=== PATIENT | male | born 1945 | race Caucasian/White ===

== ENCOUNTER 2016-09-30 00:21 | Day surgery (SDC) | payer MEDICARE ==
[~2016-09-30] VITALS: Ht 165.1 cm; Wt 78.2 kg
[2016-09-30] VITALS (15 sets, daily range): BP systolic 143–172; BP diastolic 68–97; PULSE 50–68; RESP 12–20; O2SAT 94–99
[~2016-09-30 00:21] MED LIST: ASPI-973 PO; HYDR-4003 PO; LOSA100T29 PO; MULT-1018 PO; NAPR220C11 PO; NITR0.4T6 SL
[2016-09-30 07:51] LABS: BASOPHILS % (AUTO) 0.8 % (0-3); EOSINOPHILS % (AUTO) 3.1 % (0-5); MONOCYTES % (AUTO) 11.8 % (4-12); Mean Corpuscular Hemoglobin 29.7 pg (27.0-35.0); Mean Corpuscular Volume 87.2 fL (81-100); NEUTROPHILS % (AUTO) 54.6 % (40-74); Platelet Count 176 bil/L (150-400)
[2016-09-30] MEDS ORDERED: Heparin 10,000 Unit/1,000 mL NS Premix IV ONE (07:58)
[2016-09-30] MEDS ORDERED: Heparin 1,000 Unit/mL 10 mL Inj ONE (07:58)
[2016-09-30] MEDS ORDERED: Heparin 1,000 Units/500 mL NS Premix IV ONE (07:58)
[2016-09-30] MEDS ORDERED: Nitroglycerin 50,000 mcg/250 mL D5W Premix IV ONE (07:58)
[2016-09-30] MEDS ORDERED: fentaNYL-PF 50 mCg/mL 2 mL Inj ONE (08:57)
[2016-09-30] MEDS ORDERED: 0.9% Sodium Chloride 50 ML ONE (09:32)
[2016-09-30] MEDS ORDERED: Adenosine Inj 20 ML IV ONE (09:32)
--- NOTE | 2016-09-30 10:58 | DI95 ---
[place] [id number] INTERVENTIONAL CARDIAC CATHETERIZATION PATIENT: REVA LINDSEY : 1945 MR#: [id number] ADMIT: 09/30/2016 JOB ID: [id number] DATE OF PROCEDURE: 09/30/2016 PATIENT PROFILE: The patient is a 71-year-old male with history of hypertension, obstructive sleep apnea, and history of tobacco abuse. The patient presented with palpitation and abnormal stress test. PROCEDURE: 1. Retrograde left heart catheterization. 2. Selective coronary angiography. 3. Fractional flow reserve of the proximal left anterior descending. 4. Balloon angioplasty and stenting to the left anterior descending. VASCULAR CLOSURE DEVICE: Perclose. COMPLICATIONS: None. METHOD: Retrograde left heart catheterization was performed from the right groin under 1% lidocaine local anesthesia using a 6-Pakistani sheath. Selective coronary angiogram was performed in multiple projections, including cranial and caudal angulations with hand injected contrast via JL5 and 3DRC catheters. Heparin 4,000 units were given. A flow wire was directed into the left anterior descending artery. Adenosine was given infusion IV. FFR was measured at 0.67. Additional 6,000 units of heparin were given. The Runthrough wire was placed inside the left anterior descending artery. The proximal left anterior descending artery lesion was pre-dilated with a 2.5 x 15 mm balloon. An [place] 3.0 x 15 mm stent was placed inside the proximal left descending artery lesion and deployed at 12 atmospheres for 30 seconds. Final angiogram was obtained. Right femoral angiogram was performed. Following sheath removal, hemostasis was achieved by using a Perclose device. The patient tolerated procedure well. He was transferred to [facility] in good condition. TOTAL CONTRAST USED: 100 cc. FLUOROSCOPY TIME: 5.7 minutes. RESULTS: 1. Selective coronary angiogram: a. Left main coronary artery has 20% stenosis in the distal portion. b. The left anterior descending artery is transapical and has tandem 50 and 70% stenosis in the proximal portion. c. The circumflex artery has minor irregularity. d. The dominant right coronary artery is occluded in the mid portion with left to right collateral filling the distal portion. 2. FFR of the proximal left anterior descending artery is 0.69, which indicates hemodynamic significant stenosis. 3. Balloon angioplasty and stenting was performed to the tight culprit proximal left anterior descending artery lesion by deploying one drug eluting stent (3.0 x 15 mm) to achieve an excellent result with NATALY-3 flow distally. CONCLUSION: 1. Severe proximal left anterior descending artery stenosis and this was successfully treated with one drug-eluting stent. 2. Occluded mid right coronary artery with left to right collateral. MTDD
[2016-09-30] MEDS ORDERED: 0.9% Sodium Chloride 250 ML BOLUS IV PRN (11:10)
[2016-09-30] MEDS ORDERED: 0.9% Sodium Chloride 400 ML (4 HRS) IV ONE (11:10)
[2016-09-30] MEDS ORDERED: Ondansetron 2 mg/mL 2 mL Inj IVPUSH PRN (11:10)
[2016-09-30] MEDS ORDERED: Sodium Chloride LOK Flush 10 mL Syringe IVFLUSH PRN (11:10)
[2016-09-30] MEDS ORDERED: Atropine 1 mg/10 mL (Code) Syringe IVPUSH PRN (11:10)
--- NOTE | 2016-09-30 11:22 | NUR ---
Heart cath. procedure- Patient arrived to [facility] with for procedure. Alert and oriented. Denies complaints. NPO since last night except for meds. Instructed patient on procedure and post cath. activity.
--- NOTE | 2016-09-30 15:54 | NUR ---
Post heart cath- Patient returned to [facility] post procedure. Right groin with Perclose device. No sign of hematoma or bleeding. Patient complaining of discomfort in groin site. Oxycodone given and effective for most of discomfort. Voiding per urinal. Monitor shows sinus lexis. HR-50's.
--- NOTE | 2016-09-30 15:57 | NUR ---
Transfer note- Transferred patient via bed to [facility]. Report given to Nicole BROOKS.
[2016-09-30] MEDS: HYDROcodone-APAP 5-325 mg Tablet PO PRN ×2 (17:32→23:43)
--- NOTE | 2016-09-30 17:49 | NUR ---
pt received 1600 pt received. Groin site checked, clean dry soft no hematoma. Pedal and dorsalis pedis pulses palpable. Plan for discharge tomorrow. Pt gets up independent to bathroom, pt anita well.
[2016-10-01 03:02] VITALS: BP 151/86; PULSE 54; RESP 20; O2SAT 98
--- NOTE | 2016-10-01 05:24 | NUR ---
Groin site/Pain Pt groin site soft non tender with no hematoma noted. Pt stating that he was having some discomfort in this area and down his leg, no numbness or tingling noted and pulses palpable. Administered 1 tab hydrocodone and effective, pt able to rest for remainder of shift. VSS and Tele SB 50's to 60's.
[2016-10-01 07:30] VITALS: BP 151/88; PULSE 65; RESP 16; O2SAT 97
[2016-10-01] MEDS ORDERED: Multivit-Miner-Folic Acid-Iron Tablet PO SCH (08:30)
[2016-10-01 08:39] LABS: Mean Corpuscular Hemoglobin 29.4 pg (27.0-35.0); Mean Corpuscular Volume 85.9 fL (81-100)
--- NOTE | 2016-10-01 09:52 | DIS ---
[address] [address] DISCHARGE SUMMARY PATIENT: REVA LINDSEY : 1945 MR#: [id number] ADMIT: 09/30/2016 JOB ID: [id number] DIS: 10/01/2016 ADMITTING DIAGNOSES: 1. Coronary artery disease. 2. Abnormal stress echo consistent with myocardial ischemia. DISCHARGE DIAGNOSES: 1. Coronary artery disease. 2. Abnormal stress echo consistent with myocardial ischemia. SECONDARY DIAGNOSES: 1. Hypertension. 2. Palpitation. 3. Obstructive sleep apnea. 4. History of tobacco abuse. PROCEDURE: 1. Retrograde left heart catheterization. 2. Selective coronary angiography. 3. FFR of the proximal left anterior descending. 4. Balloon angioplasty and stenting to the proximal left anterior descending. 5. Vascular closure device, Perclose. COMPLICATION: None. HISTORY: Please see detailed history in the accompanying office note dated September 25, 2016. The patient has multiple risk factors. His recent stress echo was abnormal consistent with myocardial ischemia. He underwent coronary angiogram on September 30, 2016. It demonstrated severe proximal left anterior descending artery stenosis and occluded mid right coronary artery with left to right collateral. The proximal left anterior descending artery lesion was successfully treated with one drug eluting stent (3.0 x 15 mm). The patient was discharged from the hospital on the following day in good condition. His medications remain the same with the exception of metoprolol tartrate, was decreased from 25 mg b.i.d. to 12.5 mg b.i.d. due to sinus bradycardia. He should be on clopidogrel 75 mg once daily for at least one year. The patient will return for percutaneous intervention to the mid right coronary artery in one week. [facility]
[2016-10-01] MEDS ORDERED: METO25TA6 PO (10:08)
[2016-10-01] MEDS ORDERED: CLOP75TA3 PO (10:08)
--- NOTE | 2016-10-01 10:51 | NUR ---
discharge Dr Alberto left a handwritten discharge order. Med rec checked with Hilary BROOKS. All meds and instructions reviewed with pt and his . All questions asked and answered. PIV removed with ease. Pt escorted out via wheelchair by Nneka APARICIO with ease
== END 2016-10-01 10:53 | disposition home or self-care (01) ==
LOC: SOUO 00:21 → PCC 15:00 → SOUO 10-01 10:53
PROVIDERS: ATTEND Internal Medicine Interventional Cardiology
DX: I25.10 Atherosclerotic heart disease of native coronary artery without angina pectoris (principal); I10 Essential (primary) hypertension; Z87.891 Personal history of nicotine dependence; G47.33 Obstructive sleep apnea (adult) (pediatric); E66.9 Obesity, unspecified; Z68.30 Body mass index [BMI] 30.0-30.9, adult; Z79.82 Long term (current) use of aspirin; R00.2 Palpitations
CPT/HCPCS: 36415; 80048; 85025; 85027; 93005; 93454; 93571; 99152; 99153; C1725; C1760; C1769; C1874; C1887; C9600; J0153; J1644; J2250; J3010; J7030; Q9967

== ENCOUNTER 2016-10-08 03:00 | Day surgery (SDC) | payer MEDICARE ==
[2016-10-08] VITALS (14 sets, daily range): BP systolic 116–142; BP diastolic 69–86; PULSE 58–62; RESP 12–15; O2SAT 95–97
[~2016-10-08] VITALS: Ht 165.1 cm; Wt 73.6 kg
[~2016-10-08 03:00] MED LIST changes: +CLOP75TA3 PO; +METO25TA6 PO
[2016-10-08 07:29] LABS: EOSINOPHILS % (AUTO) 4.2 % (0-5); MONOCYTES % (AUTO) 13.1 % (4-12); Mean Corpuscular Hemoglobin 29.9 pg (27.0-35.0); Mean Corpuscular Volume 86.4 fL (81-100); NEUTROPHILS % (AUTO) 55.9 % (40-74); Platelet Count 179 bil/L (150-400)
[2016-10-08] MEDS ORDERED: Heparin 10,000 Unit/1,000 mL NS Premix IV ONE (07:39)
[2016-10-08] MEDS ORDERED: Nitroglycerin 50,000 mcg/250 mL D5W Premix IV ONE (07:46)
[2016-10-08] MEDS ORDERED: fentaNYL-PF 50 mCg/mL 2 mL Inj ONE (08:54)
[2016-10-08] MEDS ORDERED: Heparin 1,000 Units/500 mL NS Premix IV ONE (08:56)
[2016-10-08] MEDS ORDERED: Heparin 1,000 Unit/mL 10 mL Inj ONE (09:04)
--- NOTE | 2016-10-08 09:16 | NUR ---
Admitted for a planned PCI of his circ - according to his , "Ilana". Admit heart rhythm is NSB rates in the 40's and 50's. LAD stent placed last week by Dr Alberto.
[2016-10-08] MEDS ORDERED: Atropine 1 mg/10 mL (Code) Syringe ONE (09:46)
--- NOTE | 2016-10-08 11:07 | DI95 ---
[address] [address] INTERVENTIONAL CARDIAC CATHETERIZATION PATIENT: REVA LINDSEY : 1945 MR#: [id number] ADMIT: 10/08/2016 JOB ID: [id number] DATE OF SERVICE: 10/08/2016 PATIENT PROFILE: The patient is a 71-year-old male who has abnormal stress echo consistent with myocardial ischemia. PROCEDURE: Unsuccessful attempt angioplasty to the chronic total occlusion of the mid right coronary artery. VASCULAR CLOSURE DEVICE: Starclose. COMPLICATIONS: None. METHOD: Vascular access was obtained from the right groin under 1% lidocaine local anesthesia using a 6-[place] sheath. This was performed under ultrasound guidance. Heparin 4,000 units were given. A 6-[place] 3DRC guide was advanced to the right coronary ostium, however it caused pressure damping. The guide catheter was changed to a 6-[place] 3DRC guide with side hole. Attempt to cross the chronic total occlusion of the mid right coronary artery was unsuccessful with a Runthrough wire and a Whisper wire using a 1.5 mm balloon and Corsair catheter as a backup. The procedure was terminated. Right femoral angiogram was performed before following sheath removal, hemostasis was achieved by using a StarClose device. The patient tolerated the procedure well. He was transferred to [facility] in good condition. TOTAL CONTRAST USED: 90 cc. FLUOROSCOPY TIME: 6.6 minutes. RESULTS: Unsuccessful attempt angioplasty to the chronic total occlusion of the mid right coronary artery. KAIA
[2016-10-08] MEDS ORDERED: HYDROcodone-APAP 5-325 mg Tablet PO ONE (11:25)
[2016-10-08] MEDS ORDERED: 0.9% Sodium Chloride 400 ML (4 HRS) IV ONE (11:30)
[2016-10-08] MEDS ORDERED: Sodium Chloride LOK Flush 10 mL Syringe IVFLUSH PRN (11:30)
[2016-10-08] MEDS ORDERED: Atropine 1 mg/10 mL (Code) Syringe IVPUSH PRN (11:30)
[2016-10-08] MEDS ORDERED: 0.9% Sodium Chloride 250 ML BOLUS IV PRN (11:30)
[2016-10-08] MEDS ORDERED: Ondansetron 2 mg/mL 2 mL Inj IVPUSH PRN (11:30)
[2016-10-08] MEDS ORDERED: HYDROcodone-APAP 5-325 mg Tablet PO PRN (11:40)
--- NOTE | 2016-10-08 15:34 | NUR ---
Right leg discomfort above closure device. Star closure used - area patient points to is soft - no changes in vital signs or heart rhythm. Medicated with 2 hydrocodone for 7/10 discomfort - which brought the pain down to 3-5/10 pain level. Patient was advised to contact Dr Alberto office if his pain level does not diminish like it did the previous week. After ambulating and sitting for 30 minutes his Right access puncture site is unchanged in pain and remains soft and non-tender. Patient described the same discomfort last week with a closure device used following a PCI of his Left main. The next day following the PCI of his left main the site of discomfort was 100% gone.
--- NOTE | 2016-10-08 15:35 | NUR ---
D/C from [facility] today with a referral to the [facility] for a stent placement to his Circ. Dr Alberto's office has contacted the of [facility] for referral for PCI. D/C instructions were reviewed with Patient and Patient's .
== END 2016-10-08 23:59 | disposition home or self-care (01) ==
LOC: SOUO 03:00
PROVIDERS: ATTEND Internal Medicine Interventional Cardiology
DX: I25.10 Atherosclerotic heart disease of native coronary artery without angina pectoris (principal); Z53.8 Procedure and treatment not carried out for other reasons; I25.82 Chronic total occlusion of coronary artery; Z87.891 Personal history of nicotine dependence; G47.33 Obstructive sleep apnea (adult) (pediatric); I48.91 Unspecified atrial fibrillation; I10 Essential (primary) hypertension; Z79.82 Long term (current) use of aspirin
CPT/HCPCS: 36415; 80048; 85025; 92920; 93005; 99152; 99153; C1725; C1760; C1769; C1887; J1644; J2250; J3010; J7030; Q9967